=== PATIENT | female | born 1980 | race Caucasian/White ===

== ENCOUNTER 2021-02-03 12:50 | Emergency (ER) | payer OTHER, SELFPAY ==
[2021-02-03 13:42] VITALS: BP 106/62; PULSE 94; RESP 16; TEMP 36.5; O2SAT 100
--- NOTE | 2021-02-03 15:16 | ED.URI ---
HPI - URI/Sore Throat General Chief Complaint: Upper Respiratory Infection Stated Complaint: sinus inf Source: patient Mode of arrival: ambulatory Limitations: no limitations History of Present Illness HPI Narrative: Patient is a 40-year-old female who presents with sinusitis. Patient reports being treated earlier in the month with azithromycin and doxycycline. She reports over the past 4 days symptoms have returned. Patient reports facial pain and pressure, congestion and headache. Patient has a history of sinus infections in the past. She is vaccinated for Covid x2, denies known exposure. She denies all other complaints at this time. MD elicited complaint: sinus pain Related Data Allergies Allergy/AdvReac Type Severity Reaction Status Date / Time diphenhydramine Allergy Unknown Unknown Verified 02/03/21 14:37 levofloxacin AdvReac Intermediate Nausea and Verified 02/03/21 14:37 Vomiting Review of Systems Review of Systems: CONSTITUTIONAL: Denies fever, chills, or sweats. EYES: Denies visual changes, redness, or discharge. ENT: Reports congestion, rhinorrhea and facial pain and pressure, reports sore throat CARDIOVASCULAR: Denies chest pain, palpitations, or edema. RESPIRATORY: Denies cough or dyspnea. GASTROINTESTINAL: Denies abdominal pain, nausea, vomiting, or diarrhea. GENITOURINARY: Denies dysuria or hematuria. SKIN: Denies rash or itching. MUSCULOSKELETAL: Denies back pain, joint pain, or myalgia. NEUROLOGIC: Denies headache, numbness, dizziness, or weakness. PSYCHIATRIC: Denies anxiety or depression. [facility] Past Medical History Medical History Hodgkins disease Hypothyroidism Renal disease Social History Social History (Updated 02/03/21 @ 15:20 by ROLAN Amin) Smoking status: Never smoker Alcohol intake: never Substance use: never Living arrangements: with family Comments At the time of signature, I have reviewed and agree with nursing past medical, surgical, social, and family history unless otherwise noted. Please see nursing chart for further information. There is no relevant family history pertinent to the presenting complaint. Exam Narrative: GENERAL: Well-appearing, well-nourished, and in no acute distress. HEAD: Normocephalic, atraumatic. EYES: EOMI. No redness or drainage. Conjunctiva are normal. ENT: Mucous membranes pink and moist. Nares clear. No rhinorrhea. TMs normal bilaterally. Throat with mild erythema. Maxillary and frontal sinus tenderness with palpation uvula midline. NECK: AROM. Supple. No lymphadenopathy. CHEST: No respiratory distress. HEART: Regular rate and rhythm. Normal peripheral pulses. EXTREMITIES: Normal range of motion. No edema. SKIN: Warm, dry, no rash. NEURO: No focal deficits. Alert and oriented x3. Gait steady. PSYCH: Normal affect. No signs of depression or anxiety. Course Vital Signs Vital signs: Vital Signs Temperature 36.5 C 02/03/21 13:42 Pulse Rate 94 02/03/21 13:42 Respiratory Rate 16 02/03/21 13:42 Blood Pressure 106/62 02/03/21 13:42 Pulse Oximetry 100 02/03/21 13:42 Temperature 36.5 C 02/03/21 13:42 Pulse Rate 94 02/03/21 13:42 Respiratory Rate 16 02/03/21 13:42 Blood Pressure 106/62 02/03/21 13:42 Pulse Oximetry 100 02/03/21 13:42 Reviewed MDM - URI/Sore Throat MDM Narrative Medical decision making narrative: Patient has maxillary and frontal sinus tenderness with palpation. Patient most likely sinusitis, history of sinusitis in the past. Patient was seen and treated weeks ago for same and symptoms have returned. Patient to be started on antibiotics at this time. Discussed follow-up care. Discussed risk of Covid as well. Patient agrees with plan of care. Patient is stable for discharge home with outpatient follow-up as discussed. Differential Diagnosis Differential diagnosis: Likely upper respiratory infection, sinusitis, viral infection,
== END 2021-02-03 15:35 | disposition home or self-care (01) ==
PROVIDERS: Emergency Provider Nurse Practitioner
DX: J01.00 Acute maxillary sinusitis, unspecified (principal); E03.9 Hypothyroidism, unspecified; Z85.71 Personal history of Hodgkin lymphoma; Z92.3 Personal history of irradiation; Z86.73 Personal history of transient ischemic attack (TIA), and cerebral infarction without residual deficits
CPT/HCPCS: 99213; G0463